=== PATIENT | male | born 1945 | race Caucasian/White ===

== ENCOUNTER 2020-07-03 10:25 | Inpatient (IN) ==
[2020-07-03] MEDS ORDERED: ADENOSINE 6 MG/2 ML VIAL ONE (11:06)
[2020-07-03] MEDS ORDERED: ADENOSINE 6 MG/2 ML VIAL IV STA (11:09)
[2020-07-03 11:15] LABS: Basophils # 0.1 10*3/uL (0.0-0.2); Basophils % 0.5 % (0.0-0.8); Eosinophils # 0.4 10*3/uL (0.0-0.87); Eosinophils % 3.1 % (0.00-10.9); Hematocrit 33.6 VOL% (42.0-52.0); Hemoglobin 11.2 GM/DL (14.0-18.0); Immature Granulocytes % 0.5 %; Immature Granulocytes Absolute 0.07 #; Lymphocytes # 1.3 10*3/uL (1.4-4.0); Lymphocytes % 9.8 % (21.2-54.2); Mean Corpuscular HGB Conc 33.3 GM/DL (32-36); Mean Corpuscular Volume 106.3 FL (87-102); Mean Platelet Volume 10.3 FL (9.6-12.0); Monocytes % 8.7 % (1.7-12.7); Neutrophils % 77.4 % (38.7-73.9); Platelet Count 220 T/CUMM (130-400); Red Blood Count 3.16 MC/CUMM (3.8-5.5); White Blood Count 13.4 T/CUMM (4-12)
[2020-07-03] MEDS ORDERED: SODIUM CHLORIDE 0.9% 1,000 ML IV STA (11:15)
[2020-07-03 11:24] LABS: PT Patient Result 10.5 SECS (9.8-11.9); Partial Thromboplastin Time 34.1 SECS (23.9-33.8)
[2020-07-03 11:41] LABS: Hypochromasia 1+; Microcytosis 1+; Platelet Estimate Adequate
[2020-07-03 12:35] LABS: Alanine Aminotransferase 12 U/L (16-61); Albumin 3.3 G/DL (3.4-5.0); Alkaline Phosphatase 103 U/L (45-117); Aspartate Amino Transferase 24 U/L (0-37); Bilirubin,Total < 0.39 MG/DL (0.2-1.0); Blood Urea Nitrogen 56 MG/DL (7-18); Estimated Glom Filtration Rate 32 ML/MIN; Glucose 115 MG/DL (74-106); Osmolality,Calculated 289.8 MOS/KG (273-304); Total Protein 8.6 G/DL (6.4-8.3); Troponin I < 0.015 NG/ML (0.00-0.045)
[2020-07-03] MEDS ORDERED: MORPHINE 4 MG/1 ML VIAL IV PRN (14:01)
[2020-07-03] MEDS ORDERED: NICOTINE 21 MG/24 HR PATCH TRANSDERM PRN (14:01)
[2020-07-03] MEDS ORDERED: GLUCAGON 1 MG VIAL IM PRN (14:01)
[2020-07-03] MEDS ORDERED: ONDANSETRON 4 MG/2 ML VIAL IV PRN (14:01)
[2020-07-03] MEDS ORDERED: DEXTROSE 50% 25 GM/50 ML VIAL IV PRN (14:01)
[2020-07-03] MEDS: ENOXAPARIN 40 MG/0.4 ML SYRINGE SUBCUT SCH (14:44)
[2020-07-03] MEDS: SODIUM CHLORIDE 0.9% 1,000 ML IV SCH ×2 (14:45→23:11)
[2020-07-03] MEDS: cefTRIAXone 1,000 MG in SYRINGE 1 EACH IV SCH (14:48)
[2020-07-03] MEDS: AZITHROMYCIN INJ 500 MG in SODIUM CHLORIDE 0.9% 250 ML IV SCH (15:04)
[2020-07-03] MEDS: ALBUTEROL/IPRATROPIUM 3 ML NEB RESP TX SCH (19:01)
[2020-07-03] MEDS: METOPROLOL TARTRATE 25 MG TABLET PO SCH (22:20)
[2020-07-04] MEDS: ALBUTEROL/IPRATROPIUM 3 ML NEB RESP TX SCH ×4 (00:04→19:06)
[2020-07-04 06:11] LABS: Basophils # 0.1 10*3/uL (0.0-0.2); Basophils % 0.7 % (0.0-0.8); Eosinophils # 0.5 10*3/uL (0.0-0.87); Hematocrit 26.7 VOL% (42.0-52.0); Immature Granulocytes % 0.5 %; Immature Granulocytes Absolute 0.05 #; Lymphocytes % 10.5 % (21.2-54.2); Mean Corpuscular Volume 108.5 FL (87-102); Mean Platelet Volume 9.9 FL (9.6-12.0); Monocytes % 8.1 % (1.7-12.7); Neutrophils % 75.2 % (38.7-73.9); Platelet Count 184 T/CUMM (130-400); White Blood Count 9.4 T/CUMM (4-12)
[2020-07-04 06:13] LABS: Hemoglobin 8.8 GM/DL (14.0-18.0); Red Blood Count 2.46 MC/CUMM (3.8-5.5)
[2020-07-04 06:18] LABS: Hypochromasia 2+; Microcytosis 1+; Platelet Estimate Adequate
[2020-07-04 06:26] LABS: Alanine Aminotransferase < 9 U/L (16-61); Albumin 2.3 G/DL (3.4-5.0); Alkaline Phosphatase 69 U/L (45-117); Aspartate Amino Transferase 15 U/L (0-37); Blood Urea Nitrogen 37 MG/DL (7-18); Calcium 8.1 MG/DL (8.5-10.1); Estimated Glom Filtration Rate 69 ML/MIN; Glucose 86 MG/DL (74-106); HDL Cholesterol 46 MG/DL (40-60); Osmolality,Calculated 288.3 MOS/KG (273-304); Risk Ratio 2.37; Total Protein 6.2 G/DL (6.4-8.3); Triglycerides 50 MG/DL (2-150)
[2020-07-04] MEDS: METOPROLOL TARTRATE 25 MG TABLET PO SCH ×2 (08:40→20:44)
[2020-07-04] MEDS: PANTOPRAZOLE 40 MG TABLET PO SCH (08:40)
[2020-07-04] MEDS: SODIUM CHLORIDE 0.9% 1,000 ML IV SCH ×4 (08:43→18:29)
[2020-07-04 14:50] LABS: Barbiturates Screen,Urine Negative (Negative); Benzodiazepines Screen,Urine Negative (Negative); Cannabinoid Screen,Urine Negative (Negative); Opiate Screen,Urine Negative (Negative); Phencyclidine Screen,Urine Negative (Negative)
[2020-07-04] MEDS: cefTRIAXone 1,000 MG in SYRINGE 1 EACH IV SCH (16:15)
[2020-07-04] MEDS: ENOXAPARIN 40 MG/0.4 ML SYRINGE SUBCUT SCH (16:15)
[2020-07-04] MEDS: AZITHROMYCIN INJ 500 MG in SODIUM CHLORIDE 0.9% 250 ML IV SCH (17:53)
[2020-07-04] MEDS ORDERED: AZITHROMYCIN INJ 500 MG in SODIUM CHLORIDE 0.9% 250 ML IV SCH (18:00)
[2020-07-05] MEDS: ALBUTEROL/IPRATROPIUM 3 ML NEB RESP TX SCH ×2 (00:39→07:14)
[2020-07-05] MEDS: SODIUM CHLORIDE 0.9% 1,000 ML IV SCH ×2 (02:48→09:16)
[2020-07-05 05:37] LABS: Basophils # 0.1 10*3/uL (0.0-0.2); Basophils % 0.8 % (0.0-0.8); Eosinophils # 0.5 10*3/uL (0.0-0.87); Eosinophils % 5.6 % (0.00-10.9); Hematocrit 25.3 VOL% (42.0-52.0); Hemoglobin 8.1 GM/DL (14.0-18.0); Immature Granulocytes % 0.5 %; Immature Granulocytes Absolute 0.04 #; Lymphocytes # 1.2 10*3/uL (1.4-4.0); Lymphocytes % 13.6 % (21.2-54.2); Mean Corpuscular Volume 111.5 FL (87-102); Mean Platelet Volume 10.1 FL (9.6-12.0); Monocytes % 9.4 % (1.7-12.7); Neutrophils % 70.1 % (38.7-73.9); Platelet Count 168 T/CUMM (130-400); Red Blood Count 2.27 MC/CUMM (3.8-5.5); Red Cell Distribution Width 22.2 % (9.3-17.3); White Blood Count 8.8 T/CUMM (4-12)
[2020-07-05 05:50] LABS: Alanine Aminotransferase < 6 U/L (16-61); Albumin 2.2 G/DL (3.4-5.0); Alkaline Phosphatase 65 U/L (45-117); Aspartate Amino Transferase 16 U/L (0-37); Bilirubin,Total < 0.39 MG/DL (0.2-1.0); Blood Urea Nitrogen 24 MG/DL (7-18); Calcium 7.8 MG/DL (8.5-10.1); Estimated Glom Filtration Rate 81 ML/MIN; Glucose 85 MG/DL (74-106); Osmolality,Calculated 283.3 MOS/KG (273-304); Total Protein 6.2 G/DL (6.4-8.3)
[2020-07-05 08:33] VITALS: BP 122/56
[2020-07-05] MEDS ORDERED: MULTIVITAMIN (CENTRUM) TABLET PO SCH (09:00)
[2020-07-05] MEDS ORDERED: AZITHROMYCIN 250 MG TABLET PO SCH (09:00)
[2020-07-05] MEDS: PANTOPRAZOLE 40 MG TABLET PO SCH (09:15)
[2020-07-05] MEDS: METOPROLOL TARTRATE 25 MG TABLET PO SCH (09:16)
== END 2020-07-05 13:00 | disposition home or self-care (01) | DRG 308 ==
LOC: N.ED 10:25 → N.EDINP 14:01 → N.TELES 15:27
PROVIDERS: ADMIT Internal Medicine; ATTEND Internal Medicine